=== PATIENT | male | born 1990 | race Caucasian/White ===

== ENCOUNTER → 2017-12-08 12:38 | Outpatient (CLI) | payer MEDICAID, SELFPAY ==
[2017-12-08 09:50] VITALS: BP 138/86; BMI 24.7
--- NOTE | 2017-12-08 10:30 | CYST_PTH ---
PATIENT: SAMANTHA FITZGERALD LOC: [facility] U#:[id number] AGE/SX: 35/M ROOM: RE12/08/[address]: Dr. Yovanny Amaya MD : [id number] BED: DIS: SPEC #: [id number] RECD: 12/08/17 12:27 STATUS: GERRY GABI #: [id number] MINDY: 12/08/17 10:[address]: Yovanny Amaya DEPT: SURGICAL PATHOLOGY RECD BY: Albina Ayala Tissues: CYST Procedures: Surgery Specimen Level III HEADER OPERATION: Excision left lower leg mass PRE-OP DIAGNOSIS: Left lower leg mass TISSUE SUBMITTED: Left lower leg cyst MICROSCOPIC DIAGNOSIS Cyst of left lower leg, excision: Consistent with fragments of trichilemmal cyst with microcalcifications and foreign body giant cell reaction to keratin debris. AM:tyrone 12/11/17 MICROSCOPIC DESCRIPTION Slides are reviewed. GROSS DESCRIPTION Received in fixative is one container labeled with the patient's name and designated left lower leg cyst. The specimen consists of irregular fragments of indurated, pink-chaidez soft tissue measuring in aggregate 3 x 3 x 1 cm. Also present in the specimen container are two elongated fragments of chaidez skin ranging in size from 1.8 to 2.5 cm. Call Box Wirer sections are submitted in one cassette. / AM:tyrone 12/08/17 TC:5 CPT: 91600
== END ==
PROVIDERS: Visit Provider Surgery
DX: R22.42 Localized swelling, mass and lump, left lower limb (principal)
CPT/HCPCS: 88304

== ENCOUNTER → 2019-06-03 | Outpatient (CLI) | payer MEDICAID, SELFPAY ==
[2017-12-18 13:16] VITALS: BMI 24.7
[2019-06-03 18:08] LABS: ALB/GLOB Ratio 1.2 RATIO (0.9-2.4); AST(SGOT) 14 U/L (15-37); Alanine Aminotransfer ALT/SGPT 24 U/L (16-61); Albumin, Serum 4.3 g/dL (3.2-5.0); Alkaline Phosphatase 102 U/L (45-117); Anion Gap 7 (5-15); BUN 15 mg/dL (7-18); BUN/Creat Ratio 17.7 RATIO (10-20); Bilirubin, Direct 0.07 mg/dL (0.00-0.30); Calcium,Total 8.8 mg/dL (8.5-10.1); Chloride 106 mmol/L (98-107); Creatinine, Serum 0.85 mg/dL (0.70-1.30); EST Glomerular Filtration Rate 113 mL/min (>60); Est Glom Filt Rate - Afr Amer 137 mL/min (>60); Globulin 3.6 g/dL (2.2-4.2); Glucose 84 mg/dL (74-106); Potassium 4.2 mmol/L (3.5-5.1); Protein, Total 7.9 g/dL (6.4-8.2); Sodium Level 141 mmol/L (136-145)
[2019-06-06 09:50] LABS: KEPPRA (LEVETIRACETAM) 16.4 ug/mL (10.0-40.0)
== END | disposition home or self-care (01) ==
LOC: LAB 16:19
PROVIDERS: Referring Provider Nurse Practitioner Family; Visit Provider Nurse Practitioner Family
DX: R56.9 Unspecified convulsions (principal)
CPT/HCPCS: 36415; 80053; 80177; 82248